=== PATIENT | male | born 1965 | race Caucasian/White ===

== ENCOUNTER 2020-11-10 17:50 | Emergency (ER) | payer SELFPAY ==
[~2020-11-10] VITALS: Ht 170.2 cm; Wt 68.0 kg
[2020-11-10 20:09] VITALS: BP 138/91
[2020-11-10] MEDS ORDERED: DIVA500T2 PO (20:09)
[2020-11-10] MEDS ORDERED: BACI3.5O8 OS (20:31)
[2020-11-10] MEDS ORDERED: LEVE500T56 PO (20:31)
--- NOTE | 2020-11-10 20:32 | PHYS DOC ---
Past Medical History Past Surgical History: Appendectomy Additional Past Surgical Histo: HERNIA Smoking Status: Current Every Day Smoker Alcohol Use: Occasionally General Adult EDM: Chief Complaint: SEIZURE HPI: HPI: 55-year-old male past medical history seizures presents for refill of seizure medication and insect bite right knee. Patient arrived by EMS. He ambulated into the ER from the ambulance. Patient states he has a history of seizures has been a while since he has had a seizure. Patient states he is out of his Keppra which she takes 500 mg twice daily. Patient ALSO concerned about an insect bite on his right knee which he noticed today. On exam there is a pus forming lesion about the size of a pinhead with surrounding erythema. Review of Systems: Review of Systems: Constitutional: Denies fever or chills. [] Eyes: Denies change in visual acuity. [] HENT: Denies nasal congestion or sore throat. [] Respiratory: Denies cough or shortness of breath. [] Cardiovascular: Denies chest pain or edema. [] GI: Denies abdominal pain, nausea, vomiting, bloody stools or diarrhea. [] : Denies dysuria. [] Musculoskeletal: Denies back pain or joint pain. [] Integument: Denies rash. [Positive cellulitis] Neurologic: Denies headache, focal weakness or sensory changes. [] Endocrine: Denies polyuria or polydipsia. [] Lymphatic: Denies swollen glands. [] Psychiatric: Denies depression or anxiety. [] Heart Score: C/O Chest Pain: N/A Risk Factors: Risk Factors: DM, Current or recent (<one month) smoker, HTN, HLP, family history of CAD, obesity. Risk Scores: Score 0 - 3: 2.5% MACE over next 6 weeks - Discharge Home Score 4 - 6: 20.3% MACE over next 6 weeks - Admit for Clinical Observation Score 7 - 10: 72.7% MACE over next 6 weeks - Early Invasive Strategies Allergies: Allergies: Allergies Coded Allergies Type Severity Reaction Last Updated Verified Penicillins Allergy Intermediate rash 11/10/20 Yes Physical Exam: PE: Constitutional: Well developed, well nourished, no acute distress, non-toxic appearance. [] HENT: Normocephalic, atraumatic, bilateral external ears normal, oropharynx moist, no oral exudates, nose normal. [] Eyes: PERRLA, EOMI, conjunctiva normal, no discharge. [] Neck: Normal range of motion, no tenderness, supple, no stridor. [] Cardiovascular:Heart rate regular rhythm, no murmur [] Lungs & Thorax: Bilateral breath sounds clear to auscultation [] Abdomen: Bowel sounds normal, soft, no tenderness, no masses, no pulsatile masses. [] Skin: Warm, dry, no erythema, no rash. [] Back: No tenderness, no CVA tenderness. [] Extremities: No tenderness, no cyanosis, no clubbing, ROM intact, no edema. [] Neurologic: Alert and oriented X 3, normal motor function, normal sensory function, no focal deficits noted. [] Psychologic: Affect normal, judgement normal, mood normal. [] Current Patient Data: Vital Signs: Vital Signs Date Time Temp Pulse Resp B/P (MAP) Pulse Ox O2 Delivery O2 Flow Rate FiO2 11/10/20 20:09 98.0 63 18 138/91 (107) 96 Room Air 98.0 EKG: EKG: [] Radiology/Procedures: Radiology/Procedures: [] Course & Med Decision Making: Course & Med Decision Making Pertinent Labs and Imaging studies reviewed. (See chart for details) [] Patient dosed with Keppra 500 mg p.o. in the ER. He was discharged home with prescription Keppra and bacitracin Based upon history of present illness and physical exam I elected not to perform any laboratory analysis or radiologic imaging. Iris Disclaimer: Iris Disclaimer: This electronic medical record was generated, in whole or in part, using a voice recognition dictation system. Departure Departure Impression: Primary Impression: Medication refill Additional Impression: Insect bite Disposition: HOME / SELF CARE / HOMELESS Condition: STABLE Referrals: NO PCP (PCP) Patient Instructions: Insect Bite, Medication Refill, Emergency Department Scripts Bacitracin (BACITRACIN) 3.5 Gm Oint...g. 1 DIONISIO OS QHS for 10 Days, #3.5 GM Prov: JAZMÍN OMRALES I DO 11/10/20 Levetiracetam (KEPPRA) 500 Mg Tablet 1 TAB PO BID for 30 Days, #60 TAB 0 Refills Prov: JAZMÍN MORALES DO 11/10/20 JAZMÍN MORALES I DO Nov 10, 2020 20:32
[2020-11-10] MEDS ORDERED: levETIRAcetam 500 MG TABLET PO SCH (21:00)
== END 2020-11-10 20:44 | disposition home or self-care (01) ==
LOC: ER 17:50
DX: S80.261A Insect bite (nonvenomous), right knee, initial encounter (principal); F17.200 Nicotine dependence, unspecified, uncomplicated; Z88.0 Allergy status to penicillin; W57.XXXA Bitten or stung by nonvenomous insect and other nonvenomous arthropods, initial encounter; Y93.89 Activity, other specified; Y92.89 Other specified places as the place of occurrence of the external cause; Y99.8 Other external cause status
CPT/HCPCS: 99283